=== PATIENT | male | born 1990 | race African-American/Black ===

== ENCOUNTER 2024-03-29 10:43 | Emergency (ER) | payer OTHER ==
[2024-03-29 11:04] VITALS: BP 141/92; PULSE 60; RESP 18; TEMP 97.5; BMI 34.2
[2024-03-29] MEDS ORDERED: ACETAMINOPHEN 500 MG TABLET (FP) ONE (11:06)
[2024-03-29] MEDS: ACETAMINOPHEN 500 MG TABLET (FP) PO ONE (11:08)
[2024-03-29] MEDS ORDERED: oxyCODONE HCL 5 MG TABLET ONE (13:11)
[2024-03-29] MEDS: oxyCODONE HCL 5 MG TABLET PO ONE (13:14)
[2024-03-29] MEDS: IBUPROFEN 600 MG TABLET (FP) PO ONE (13:15)
[2024-03-29] MEDS ORDERED: IBUPROFEN 600 MG TABLET (FP) PO ONE (13:16)
[2024-03-29] MEDS ORDERED: LIDOCAINE 2%/EPINEPHRINE 1:100000 (50 ML MD VIAL) INF ONE (13:26)
[2024-03-29] MEDS ORDERED: LIDO 2%/EPI 1:200000 PRESRVFRE (20 ML SDVIAL) ONE (13:26)
[2024-03-29] MEDS: LIDOCAINE 2%/EPINEPHRINE 1:100000 (50 ML MD VIAL) INF ONE (13:35)
== END 2024-03-29 14:45 | disposition home or self-care (01) ==
LOC: FER 10:43
DX: S06.0X1A Concussion with loss of consciousness of 30 minutes or less, initial encounter (principal); S01.112A Laceration without foreign body of left eyelid and periocular area, initial encounter; S40.212A Abrasion of left shoulder, initial encounter; S50.312A Abrasion of left elbow, initial encounter; V18.0XXA Pedal cycle driver injured in noncollision transport accident in nontraffic accident, initial encounter
CPT/HCPCS: 70450-TC; 70486-TC; 72125-TC; 73030-TC-LT-FY; 76604; 76705-TC; 93308; 99284-25